=== PATIENT | female | born 1985 | race Caucasian/White ===

== ENCOUNTER → 2017-02-09 | Outpatient (CLI) | payer SELFPAY | LOC: OD 12:58 | PROVIDERS: ATTEND Nurse Practitioner Acute Care | DX: J40 Bronchitis, not specified as acute or chronic (principal) | CPT/HCPCS: 71020 ==

== ENCOUNTER 2017-07-20 20:23 | Emergency (ER) | payer SELFPAY ==
[2017-07-20 21:05] LABS: APPEARANCE,URINE CLEAR; BILIRUBIN,URINE NEGATIVE (NEGATIVE); GLUCOSE, URINE NEGATIVE (NEGATIVE); KETONES,URINE NEGATIVE (NEGATIVE); LEUKOCYTE ESTERASE,URINE NEGATIVE (NEGATIVE); NITRITE,URINE NEGATIVE (NEGATIVE); PROTEIN,URINE NEGATIVE (NEGATIVE); UROBILINOGEN,URINE NEGATIVE mg/dL (<2.0)
[2017-07-20 21:45] LABS: ABSOLUTE BASOPHILS # (AUTO) 0.1 10^3/uL (0.0-0.2); ABSOLUTE EOSINOPHILS # (AUTO) 0.1 10^3/uL (0.0-0.6); ABSOLUTE LYMPHOCYTES (AUTO) 2.8 10^3/uL (0.5-4.7); ABSOLUTE MONOCYTES (AUTO) 0.5 10^3/uL (0.1-1.4); ABSOLUTE NEUT (AUTO) 2.6 10^3/uL (1.7-8.2); BASOPHILS % (AUTO) 0.9 % (0-2); EOSINOPHILS % (AUTO) 1.7 % (0-6); HEMATOCRIT 37.1 % (36.0-47.0); HEMOGLOBIN 12.4 g/dL (12.0-15.5); HGB HCT DIFFERENCE 0.1; LYMPHOCYTES % (AUTO) 46.7 % (13-45); MEAN CORPUSCULAR HEMOGLOBIN 30.4 pg (27.0-33.4); MEAN CORPUSCULAR HGB CONC 33.5 g/dL (32.0-36.0); MEAN CORPUSCULAR VOLUME 91 fl (80-97); MONOCYTES % (AUTO) 7.5 % (3-13); RED BLOOD COUNT 4.09 10^6/uL (3.72-5.28); RED CELL DISTRIBUTION WIDTH 15.3 % (11.5-14.0); SEGMENTED NEUTROPHILS % (AUTO) 43.2 % (42-78); WHITE BLOOD COUNT 6.1 10^3/uL (4.0-10.5)
[2017-07-20 22:03] LABS: ALANINE AMINOTRANSFERASE 64 U/L (9-52); ALBUMIN 5.1 g/dL (3.5-5.0); ALKALINE PHOSPHATASE 149 U/L (38-126); ANION GAP 14 (5-19); ASPARTATE AMINO TRANSFERASE 52 U/L (14-36); BILIRUBIN,DIRECT 0.4 mg/dL (0.0-0.4); BILIRUBIN,TOTAL 0.4 mg/dL (0.2-1.3); BLOOD UREA NITROGEN 14 mg/dL (7-20); CALCIUM 10.2 mg/dL (8.4-10.2); CARBON DIOXIDE 25 mmol/L (22-30); CHLORIDE 101 mmol/L (98-107); CREATININE RESULT 0.84 mg/dL (0.52-1.25); GLUCOSE 79 mg/dL (75-110); POTASSIUM 4.2 mmol/L (3.6-5.0); SODIUM 139.7 mmol/L (137-145); TOTAL PROTEIN 8.3 g/dL (6.3-8.2)
== END 2017-07-20 23:00 | disposition left against medical advice (07) ==
LOC: ER 20:23
DX: Z53.9 Procedure and treatment not carried out, unspecified reason (principal); K92.0 Hematemesis
CPT/HCPCS: 36415; 80053; 81001; 81025; 85025

== ENCOUNTER 2017-11-20 23:10 | Emergency (ER) | payer MEDICAID, OTHER ==
--- NOTE | 2017-11-21 02:11 | ER Document Report ---
ED General - General Chief Complaint: Anxiety Stated Complaint: ANXIETY Time Seen by Provider: 11/21/17 02:10 Notes: Patient is a 32-year-old female presents with complaint of chest pain. Patient says it came on suddenly while she was folding clothes. She did continue for 2 hours. She then called her . Her informed her that she could be having a problem with her heart. She then started to have a panic attack and therefore came straight to the ER. She said the panic attack resolved. She said stools pain is worse with taking a deep breath that is just left to the sternum. She does have some pain with deep inspiration. She does not take control. No history of leg pain or leg swelling. No history of DVT or PE. She is non-smoker. No recent surgeries. She has no other complaints at this time. Patient does admit that she has a history of anxiety or panic attacks but she has never had chest pain that preceded for several hours prior to panic attack. Patient says that she started to feel anxious and panicky because of pain prolonged first so long and also after talking to her . TRAVEL OUTSIDE OF THE [place] IN LAST 30 DAYS: No - Related Data Allergies/Adverse Reactions: dexamethasone [From Decadron] Allergy (Verified 11/20/17 23:41) dexamethasone sod phosphate [From Decadron] Allergy (Verified 11/20/17 23:41) metoclopramide HCl [From Reglan] Allergy (Verified 11/20/17 23:41) ondansetron HCl [From Zofran] Allergy (Verified 11/20/17 23:41) Penicillins Allergy (Verified 11/20/17 23:41) phenazopyridine HCl [From Pyridium] Allergy (Verified 11/20/17 23:41) prochlorperazine edisylate [From Compazine] Allergy (Verified 11/20/17 23:41) prochlorperazine maleate [From Compazine] Allergy (Verified 11/20/17 23:41) Sulfa (Sulfonamide Antibiotics) Allergy (Verified 11/20/17 23:41) Past Medical History - Social History Smoking Status: Never Smoker Frequency of alcohol use: None Drug Abuse: None Family History: Reviewed & Not Pertinent Patient has suicidal ideation: No Patient has homicidal ideation: No - Past Medical History Cardiac Medical History: Reports: Hx Hypertension Neurological Medical History: Reports: Hx Migraine Renal/ Medical History: Denies: Hx Peritoneal Dialysis Psychiatric Medical History: Reports: Hx Anxiety, Hx Depression Past Surgical History: Reports: Hx Section - x3, Hx Tubal Ligation - Immunizations Immunizations up to date: Yes Hx Diphtheria, Pertussis, Tetanus Vaccination: Yes - unk Review of Systems - Review of Systems Notes: My Normal Review Basic REVIEW OF SYSTEMS: CONSTITUTIONAL : Denies fever, chills, or sweats. Denies recent illness. EENT: Denies eye, ear, throat, or mouth pain or symptoms. Denies nasal or sinus congestion. CARDIOVASCULAR: Left parasternal chest pain. RESPIRATORY: Denies cough, cold, or chest congestion. Denies shortness of breath, difficulty breathing, or wheezing. GASTROINTESTINAL: Denies abdominal pain. Denies nausea, vomiting, or diarrhea. Denies constipation. Last BM: GENITOURINARY: Denies difficulty urinating, painful urination, burning, frequency, or blood in urine. MUSCULOSKELETAL: Denies neck or back pain or joint pain or swelling. SKIN: Denies rash or skin lesions. NEUROLOGICAL: Denies altered mental status or loss of consciousness. Denies headache. Denies weakness or paralysis or loss of use of either side. Denies problems with gait or speech. Denies sensory or motor loss. ALL OTHER SYSTEMS REVIEWED AND NEGATIVE. Physical Exam - Vital signs Vitals: Temp Pulse Resp BP Pulse Ox 97.5 F 93 16 103/70 100 11/20/17 23:43 11/20/17 23:43 11/20/17 23:43 11/20/17 23:43 11/20/17 23:43 - Notes Notes: General Appearance: Well nourished, alert, cooperative, no acute distress, mild obvious discomfort. Well appearing. Vitals: reviewed, See vital signs table. Head: no swelling or tenderness to the head Eyes: PERRL, EOMI, Conjuctiva clear Mouth: No decreasd moisture Chest wall: Some reproducible tenderness palpation just left of the sternal border. Lungs: No wheezing, No rales, No rhonci, No accessory muscle use, good air exchange bilaterally. Heart: Normal rate, Regular rythm, No murmur, no rub Abdomen: Normal BS, soft, No rigidity, No abdominal tenderness, No guarding, no rebound, no abdominal masses, no organomegaly Extremities: strength 5/5 in all extremities, good pulses in all extremities, no swelling or tenderness in the extremities, no edema. Skin: warm, dry, appropriate color, no rash Neuro: speech clear, oriented x 3, normal affect, responds appropriately to questions. Course - Re-evaluation Re-evalutation: 11/21/17 07:05 Based on patient's history is suspect this most likely has costochondritis. On exam her pain is easily reproducible to palpation. Did obtain a d-dimer because patient says the pain came on suddenly and the pain was pleuritic. D- dimer is negative. She has no other risk factors for PE and therefore I do not think CT is needed at this time. She is purple negative. Patient will be discharged home but strongly encouraged to return to ER if she has worsening chest pain, difficulty breathing, or feels unwell. I will place her on anti- inflammatory medication and encouraged her follow-up closely with her primary care doctor this week. Patient agrees with plan will be discharged home. Dictation of this chart was performed using voice recognition software; therefore, there may be some unintended grammatical errors. - Vital Signs Vital signs: Temp Pulse Resp BP Pulse Ox 98.1 F 88 16 94/49 L 100 11/21/17 04:15 11/21/17 04:15 11/20/17 23:43 11/21/17 04:15 11/21/17 04:15 - Laboratory Result Diagrams: 11/21/17 02:55 11/21/17 02:55 Laboratory results interpreted by me: 11/21/17 11/21/17 02:55 02:55 WBC 10.9 H Hgb 11.3 L Hct 33.7 L RDW 14.4 H Carbon Dioxide 20 L Glucose 74 L - EKG Interpretation by Me Additional EKG results interpreted by me: 11/21/17 02:11 EKG is reviewed and interpreted by me. EKG shows sinus tachycardia with a rate of [address] segment elevation or depression. Patient does have mild ST segment pressure in lead V4 which is unchanged comparison to her previous EKG from January 02, 2016. Discharge - Discharge Clinical Impression: Chest pain Qualifiers: Chest pain type: unspecified Qualified Code(s): R07.9 - Chest pain, unspecified Condition: Good Disposition: HOME, SELF-CARE Instructions: Anxiety ([facility]) Additional Instructions: I suspect your chest pain is related to inflammation of the cartilage in the middle of your chest. Treatment for this is antiinflammatory medications such as Naprosyn. I will prescribe you a course of Naprosyn. Please follow up with a doctor in 3-5 days for reevaluation. Please return to the ER if you have fevers , difficulty breathing, or worsening pain. Prescriptions: Naproxen [Naprosyn 250 mg Tablet] 250 mg PO BID #20 tablet
[2017-11-21 03:10] LABS: ABSOLUTE BASOPHILS # (AUTO) 0.1 10^3/uL (0.0-0.2); ABSOLUTE LYMPHOCYTES (AUTO) 2.7 10^3/uL (0.5-4.7); ABSOLUTE MONOCYTES (AUTO) 0.8 10^3/uL (0.1-1.4); ABSOLUTE NEUT (AUTO) 7.3 10^3/uL (1.7-8.2); BASOPHILS % (AUTO) 0.5 % (0-2); EOSINOPHILS % (AUTO) 0.3 % (0-6); HEMATOCRIT 33.7 % (36.0-47.0); HEMOGLOBIN 11.3 g/dL (12.0-15.5); LYMPHOCYTES % (AUTO) 24.5 % (13-45); MEAN CORPUSCULAR HEMOGLOBIN 29.9 pg (27.0-33.4); MEAN CORPUSCULAR HGB CONC 33.6 g/dL (32.0-36.0); MEAN CORPUSCULAR VOLUME 89 fl (80-97); MONOCYTES % (AUTO) 7.6 % (3-13); PLATELET COUNT 305 10^3/uL (150-450); RED BLOOD COUNT 3.79 10^6/uL (3.72-5.28); RED CELL DISTRIBUTION WIDTH 14.4 % (11.5-14.0); SEGMENTED NEUTROPHILS % (AUTO) 67.1 % (42-78); TOTAL CELLS COUNTED % (AUTO) 100 %; WHITE BLOOD COUNT 10.9 10^3/uL (4.0-10.5)
[2017-11-21 03:33] LABS: ANION GAP 14 (5-19); BLOOD UREA NITROGEN 17 mg/dL (7-20); CALCIUM 9.3 mg/dL (8.4-10.2); CARBON DIOXIDE 20 mmol/L (22-30); CHLORIDE 107 mmol/L (98-107); GLUCOSE 74 mg/dL (75-110); POTASSIUM 4.2 mmol/L (3.6-5.0); SODIUM 141.3 mmol/L (137-145)
--- NOTE | 2017-11-21 03:49 | RADIOLOGY REPORT (SQ) ---
EXAM DESCRIPTION: CHEST SINGLE VIEW CLINICAL HISTORY: chest pain COMPARISON: 02/09/2017 FINDINGS: Single frontal view of the chest. The cardiomediastinal silhouette has normal size and contour. No consolidation, pneumothorax, or pleural effusion. No displaced rib fractures identified. Upper abdominal soft tissues are unremarkable. IMPRESSION: 1. No acute pulmonary process identified.
--- NOTE | 2017-11-21 04:16 | ER Document Report ---
ED General - General Chief Complaint: Anxiety Stated Complaint: ANXIETY Time Seen by Provider: 11/21/17 02:10 TRAVEL OUTSIDE OF THE [place] IN LAST 30 DAYS: No - Related Data Allergies/Adverse Reactions: dexamethasone [From Decadron] Allergy (Verified 11/20/17 23:41) dexamethasone sod phosphate [From Decadron] Allergy (Verified 11/20/17 23:41) metoclopramide HCl [From Reglan] Allergy (Verified 11/20/17 23:41) ondansetron HCl [From Zofran] Allergy (Verified 11/20/17 23:41) Penicillins Allergy (Verified 11/20/17 23:41) phenazopyridine HCl [From Pyridium] Allergy (Verified 11/20/17 23:41) prochlorperazine edisylate [From Compazine] Allergy (Verified 11/20/17 23:41) prochlorperazine maleate [From Compazine] Allergy (Verified 11/20/17 23:41) Sulfa (Sulfonamide Antibiotics) Allergy (Verified 11/20/17 23:41) Past Medical History - Social History Smoking Status: Never Smoker Frequency of alcohol use: None Drug Abuse: None Family History: Reviewed & Not Pertinent Patient has suicidal ideation: No Patient has homicidal ideation: No - Past Medical History Cardiac Medical History: Reports: Hx Hypertension Neurological Medical History: Reports: Hx Migraine Renal/ Medical History: Denies: Hx Peritoneal Dialysis Psychiatric Medical History: Reports: Hx Anxiety, Hx Depression Past Surgical History: Reports: Hx Section - x3, Hx Tubal Ligation - Immunizations Immunizations up to date: Yes Hx Diphtheria, Pertussis, Tetanus Vaccination: Yes - unk Physical Exam - Vital signs Vitals: Temp Pulse Resp BP Pulse Ox 97.5 F 93 16 103/70 100 11/20/17 23:43 11/20/17 23:43 11/20/17 23:43 11/20/17 23:43 11/20/17 23:43 Course - Vital Signs Vital signs: Temp Pulse Resp BP Pulse Ox 97.5 F 93 16 103/70 100 11/20/17 23:43 11/20/17 23:43 11/20/17 23:43 11/20/17 23:43 11/20/17 23:43 - Laboratory Result Diagrams: 11/21/17 02:55 11/21/17 02:55 Laboratory results interpreted by me: 11/21/17 11/21/17 02:55 02:55 WBC 10.9 H Hgb 11.3 L Hct 33.7 L RDW 14.4 H Carbon Dioxide 20 L Glucose 74 L Discharge - Discharge Clinical Impression: Chest pain Qualifiers: Chest pain type: unspecified Qualified Code(s): R07.9 - Chest pain, unspecified Condition: Good Disposition: HOME, SELF-CARE Instructions: Anxiety ([facility]) Additional Instructions: I suspect your chest pain is related to inflammation of the cartilage in the middle of your chest. Treatment for this is antiinflammatory medications such as Naprosyn. I will prescribe you a course of Naprosyn. Please follow up with a doctor in 3-5 days for reevaluation. Please return to the ER if you have fevers , difficulty breathing, or worsening pain. Prescriptions: Naproxen [Naprosyn 250 mg Tablet] 250 mg PO BID #20 tablet
[2017-11-21 04:24] VITALS: BP 94/49
--- NOTE | 2017-11-21 17:27 | EKG REPORT ---
SEVERITY:- ABNORMAL ECG - SINUS TACHYCARDIA NONSPECIFIC T ABNORMALITIES, DIFFUSE LEADS : Confirmed by: Ragini Courtney 21-Nov-2017 17:26:10
== END 2017-11-21 04:20 | disposition home or self-care (01) ==
LOC: ER 23:10
DX: R07.9 Chest pain, unspecified (principal); F41.9 Anxiety disorder, unspecified
CPT/HCPCS: 36415; 71045; 80048; 85025; 85379; 93005; 93010; 99284